=== PATIENT | male | born 1935 | race Caucasian/White ===

== ENCOUNTER → 2017-01-03 | Outpatient (CLI) | payer MEDICARE ==
[~2017-01-03] MED LIST: AVODART0.5 MG PO; CELEBREX200 MG PO; DOXAZOSIN4 MG PO; FLOMAX 0.4MG C0.4 MG PO; HYDRALAZINE HCL25 M1 PO; SALMETEROL-F28 PUFFS IN
--- NOTE | 2017-01-03 15:21 | RADIOLOGY REPORT PS360 ---
[id number] VIEWS HISTORY: RT RIB PAIN ORDERING PHYSICIAN: Alice REICH PATIENT AGE: 81 years COMPARISON: None FINDINGS: A frontal view of the chest shows mild blunting of the right CP angle. No evidence of pneumothorax.. Multiple views of the right ribs were obtained. There is a minimally displaced fracture involving the lateral aspect of the right eighth rib and a nondisplaced fracture of the right ninth rib laterally. IMPRESSION: 1. Minimally displaced right eighth and nondisplaced right ninth rib fracture. 2. Small right effusion
== END ==
LOC: RAD 11:44
DX: R07.81 Pleurodynia (principal)